=== PATIENT | female | born 1995 | race Caucasian/White ===

== ENCOUNTER 2018-09-10 23:26 | Emergency (ER) | payer OTHER ==
[~2018-09-10] VITALS: Ht 152.4 cm; Wt 49.0 kg
--- NOTE | 2018-09-10 23:32 | NUR ---
Patient to ER bed 03 to gown for evaluation. Side rails up. Report given to LOKESH Bronson
[2018-09-10 23:35] VITALS: BP_SYST 121
[2018-09-10] MEDS ORDERED: methylPREDNISolone SOD SUCC/PF 62.5 MG/ML VIAL IM ONE (23:45)
[2018-09-10] MEDS ORDERED: DIPHENHYDRAMINE INJ 50 MG/ML VIAL IM ONE (23:45)
--- NOTE | 2018-09-10 23:46 | NUR ---
ER Dr. Mckeon at bedside examining patient.
--- NOTE | 2018-09-10 23:50 | NUR ---
Pt C/O skin rash and itching since today. Pt states itching and rash started 2 hours prior to work. After work symptoms worsened and decided to be evaluated at the ER. Pt denies shortness of breath, chest pain, nausea or vomiting at this time. Vital signs are stable, will continue to monitor.
[2018-09-11 00:33] VITALS: BP_SYST 109
--- NOTE | 2018-09-11 00:33 | NUR ---
Patient given written and verbal discharge instructions and verbalizes understanding. ER MD discussed with patient the results and treatment provided. Patient in stable condition. ID arm band removed. Rx of Benadryl and Prednisone given. Patient educated on pain management and to follow up with PMD. Pain Scale 0. Opportunity for questions provided and answered. Medication side effect fact sheet provided.
== END 2018-09-11 00:33 | disposition home or self-care (01) ==
LOC: SED 23:26
DX: L23.9 Allergic contact dermatitis, unspecified cause (principal); R10.84 Generalized abdominal pain; R11.10 Vomiting, unspecified
CPT/HCPCS: 96372; 99283; J1200; J2930

== ENCOUNTER 2020-10-11 03:19 | Emergency (ER) | payer BC, OTHER ==
[~2020-10-11] VITALS: Ht 157.5 cm; Wt 53.5 kg
[2020-10-11 03:25] VITALS: BP_SYST 126
[2020-10-11] MEDS ORDERED: FAMOTIDINE PF 20 MG/2 ML VIAL ONE (03:55)
[2020-10-11] MEDS ORDERED: methylPREDNISolone SOD SUCC/PF 62.5 MG/ML VIAL ONE (03:55)
[2020-10-11] MEDS ORDERED: methylPREDNISolone SOD SUCC/PF 62.5 MG/ML VIAL IVP ONE (04:00)
[2020-10-11] MEDS ORDERED: EPINEPHrine 1 MG/ML AMP IM ONE (04:00)
[2020-10-11] MEDS ORDERED: FAMOTIDINE PF 20 MG/2 ML VIAL IVP ONE (04:00)
[2020-10-11 05:53] VITALS: BP_SYST 114
== END 2020-10-11 05:52 | disposition home or self-care (01) ==
LOC: SED 03:19
DX: T78.2XXA Anaphylactic shock, unspecified, initial encounter (principal); X58.XXXA Exposure to other specified factors, initial encounter
CPT/HCPCS: 81025; 93005; 96372; 96374; 96375; 99284; J0171; J2930; J3490

== ENCOUNTER 2021-05-14 07:22 | Emergency (ER) | payer OTHER, BC ==
[~2021-05-14] VITALS: Ht 152.4 cm; Wt 50.8 kg
--- NOTE | 2021-05-14 07:25 | NUR ---
Pt walked in with c/o right side/flank pain, 02/21 x2 days. Denies n/v at this time. V/S stable, no acute distress noted.
--- NOTE | 2021-05-14 07:25 | NUR ---
Pt triaged and placed in waiting room
[2021-05-14 07:36] VITALS: BP_SYST 115
--- NOTE | 2021-05-14 07:40 | NUR ---
ER Dr. Talbot at bedside examining patient.
--- NOTE | 2021-05-14 07:45 | NUR ---
Patient transported to radiology via ambulatory, accompanied by staff.
[2021-05-14 08:46] LABS: BASOPHILS % (AUTO) 0.6 % (0.0-2.0); EOSINOPHILS % (AUTO) 0.8 % (0.0-4.0); HEMATOCRIT 39.6 % (36-48); HEMOGLOBIN 13.5 g/dL (12.0-16.0); LYMPHOCYTES # (AUTO) 1.7 K/uL (1.0-5.5); LYMPHOCYTES % (AUTO) 25.6 % (20.5-51.5); MEAN CORPUSCULAR HEMOGLOBIN 30 pg (27-31); MEAN CORPUSCULAR HGB CONC 34 % (32-36); MEAN CORPUSCULAR VOLUME 88 fL (79.0-98.0); MONOCYTES # (AUTO) 0.5 K/uL (0.0-1.0); MONOCYTES % (AUTO) 7.1 % (1.7-9.3); NEUTROPHILS # (AUTO) 4.3 K/uL (1.8-7.7); NEUTROPHILS % (AUTO) 65.9 % (40.0-70.0); PLATELET COUNT (AUTO) 256 K/uL (130-430); RED BLOOD CELL COUNT(AUTO) 4.51 MIL/uL (4.2-6.2); RED CELL DISTRIBUTION WIDTH 13.6 % (9.0-15.0); WHITE BLOOD COUNT (AUTO) 6.5 K/uL (4.8-10.8)
[2021-05-14 09:07] LABS: CALCIUM 8.9 mg/dL (8.4-11.0); CREATININE 0.74 mg/dL (0.55-1.30); POTASSIUM 4.3 mmol/L (3.5-5.1)
[2021-05-14 09:13] LABS: ALBUMIN 3.9 g/dL (3.4-4.8); TOTAL BILIRUBIN 0.6 mg/dL (0.0-1.0)
[2021-05-14] MEDS ORDERED: MAGN296S30 PO (09:25)
[2021-05-14] MEDS ORDERED: TRAM50TA PO (09:25)
--- NOTE | 2021-05-14 09:25 | NUR ---
Patient given written and verbal discharge instructions and verbalizes understanding. ER MD discussed with patient the results and treatment provided. Patient in stable condition. ID arm band removed. Rx of Tramadol and Mag citrate given. Patient educated on pain management and to follow up with PMD. Pain Scale 0. Opportunity for questions provided and answered. Medication side effect fact sheet provided.
[2021-05-14 09:33] VITALS: BP_SYST 115
== END 2021-05-14 09:33 | disposition home or self-care (01) ==
LOC: SED 07:22
DX: R10.31 Right lower quadrant pain (principal); Z79.899 Other long term (current) drug therapy
CPT/HCPCS: 36415; 76376; 80053; 81002; 81025; 85025; 99284

== ENCOUNTER 2023-05-26 16:42 | Emergency (ER) | payer BC, OTHER ==
[~2023-05-26] VITALS: Ht 152.4 cm; Wt 52.2 kg
[~2023-05-26 16:42] MED LIST: MAGN296S8 PO; TRAM50TA PO
[2023-05-26 17:30] VITALS: BP_SYST 115; PULSE 72; RESP 18; TEMP 96.9; O2SAT 98
[2023-05-26 19:25] LABS: CALCIUM 8.5 mg/dL (8.4-11.0); CREATININE 0.64 mg/dL (0.55-1.30); POTASSIUM 3.6 mmol/L (3.5-5.1)
[2023-05-26 19:36] LABS: ALBUMIN 3.7 g/dL (3.4-4.8); TOTAL BILIRUBIN 0.3 mg/dL (0.0-1.0); TOTAL PROTEIN, SERUM 6.9 g/dL (6.4-8.3)
== END 2023-05-26 19:15 | disposition left against medical advice (07) ==
LOC: SED 16:42
DX: N93.9 Abnormal uterine and vaginal bleeding, unspecified (principal); R10.2 Pelvic and perineal pain; R30.9 Painful micturition, unspecified; Z79.899 Other long term (current) drug therapy
CPT/HCPCS: 36415; 76830-TC; 80053; 84702; 86900; 86901; 99284